=== PATIENT | male | born 1970 | race Caucasian/White ===

== ENCOUNTER 2016-11-24 02:25 | Emergency (ER) | payer OTHER ==
[~2016-11-24] VITALS: Ht 177.8 cm; Wt 88.6 kg
[~2016-11-24 02:25] MED LIST: AMPHETAMINE SAL10 MG PO; ATARAX,VISTARIL50 MG PO; CELEXA20 MG PO; CYCLOBENZAPRINE10 MG PO; FENOFIBRATE145 M1 PO; LISINOPRIL20 MG PO; LOSARTAN POTASS50 MG PO; MORPHINE SULFAT30 M2 PO; MORPHINE SULFAT60 MG PO; OMEPRAZOLE40 M1 PO; OXYCODONE-APAP1 EACH PO; PANTOPRAZOLE SO40 MG PO; QUESTRAN POWDE378 GM PO; SEROQUEL100 MG PO; SEROQUEL300 MG PO; SPIRIVA RESPIMAT4 GM IH; TRAZODONE HCL50 MG PO; VENTOLIN HFA18 GM IH; ZOLPIDEM TARTRAT5 MG PO
[2016-11-24 02:37] VITALS: BP 124/73
[2016-11-24 03:26] LABS: HEMATOCRIT 42.5 % (38.0-50.0); MCH 30.2 PG (29.0-34.0); MCHC 33.6 G/DL (30.0-36.0); MCV 89.7 FL (86-99); MEAN PLAT.VOLUME 9.5 uM^3 (9.0-12.4); PLATELET COUNT 334 K/uL (156-360); RBC DIS.WIDTH-CV 11.6 % (11.8-14.6); RED BLOOD COUNT 4.74 M/uL (4.00-5.50); WHITE BLOOD COUNT 11.5 K/uL (4.1-10.2)
[2016-11-24 03:34] LABS: CHLORIDE 102 mEq/L (99-109); POTASSIUM 3.6 mEq/L (3.7-5.4); SODIUM 137 mEq/L (136-147)
[2016-11-24 03:35] LABS: GLUCOSE 119 mg/dL (70-99)
[2016-11-24 03:37] LABS: ANION GAP 15 MEQ/L (2-14)
[2016-11-24 03:39] LABS: GFR ESTIMATE (CALCULATED) > 59 mL/min/
[2016-11-24 03:40] LABS: UREA NITROGEN (BUN) 9 mg/dL (9-23)
== END 2016-11-24 03:30 | disposition left against medical advice (07) ==
LOC: EME 02:25
DX: R11.2 Nausea with vomiting, unspecified (principal); Z53.21 Procedure and treatment not carried out due to patient leaving prior to being seen by health care provider
CPT/HCPCS: 71020; 80048; 85027; 93005; J2405

== ENCOUNTER 2017-03-10 14:08 | Observation (INO) | payer OTHER ==
[~2017-03-10] VITALS: Ht 177.8 cm; Wt 85.9 kg
[2017-03-10 15:04] LABS: HEMATOCRIT 50.6 % (38.0-50.0); MCH 30.4 PG (29.0-34.0); MCHC 34.4 G/DL (30.0-36.0); MCV 88.3 FL (86-99); PLATELET COUNT 338 K/uL (156-360); RBC DIS.WIDTH-CV 11.8 % (11.8-14.6); RED BLOOD COUNT 5.73 M/uL (4.00-5.50); WHITE BLOOD COUNT 12.8 K/uL (4.1-10.2)
[2017-03-10 15:14] LABS: CHLORIDE 106 mEq/L (99-109); POTASSIUM 5.3 mEq/L (3.7-5.4); SODIUM 138 mEq/L (136-147)
[2017-03-10 15:16] LABS: GLUCOSE 96 mg/dL (70-99)
[2017-03-10 15:18] LABS: ANION GAP 12 MEQ/L (2-14); TOTAL BILIRUBIN 0.5 mg/dL (0.0-1.0)
[2017-03-10 15:20] LABS: ALKALINE PHOSPHATASE 104 IU/L (3-129); GFR ESTIMATE (CALCULATED) > 59 mL/min/
[2017-03-10 15:21] LABS: UREA NITROGEN (BUN) 11 mg/dL (9-23)
[2017-03-10 15:22] LABS: DIRECT BILIRUBIN 0.2 mg/dL (0.0-0.3)
[2017-03-10 15:23] LABS: LIPASE 119 U/L (1.0-51.0)
[2017-03-10] MEDS ORDERED: LOTENSIN40 MG PO (19:19)
[2017-03-10] MEDS ORDERED: PROTONIX40 MG PO (19:19)
[2017-03-10] MEDS ORDERED: ADVAIR 250/501 DISK IH (19:20)
[2017-03-10] MEDS ORDERED: PROAIR HFA8.5 GM IH (19:20)
[2017-03-10] MEDS ORDERED: NORVASC5 MG PO (19:20)
[2017-03-10] MEDS ORDERED: CLINORIL200 MG PO (19:20)
[2017-03-10] MEDS ORDERED: OXYCODONE HCL10 MG PO (19:21)
[2017-03-10] MEDS ORDERED: OXYMORPHONE HCL20 MG PO (19:21)
[2017-03-10] MEDS ORDERED: RANITIDINE HCL300 MG PO (19:21)
[2017-03-10 20:27] LABS: MAGNESIUM 2.2 mg/dL (1.3-2.7)
[2017-03-10 20:31] LABS: SERUM ETHYL ALCOHOL < 10 mg/dL
[2017-03-10 22:54] LABS: HEMATOCRIT 46.4 % (38.0-50.0); MCV 88.9 FL (86-99)
[2017-03-10 23:35] VITALS: BP 125/71
[2017-03-11 04:16] VITALS: BP 103/68
[2017-03-11 05:15] LABS: BASOPHIL COUNT 0.1 K/uL (0-0.1); EOSINOPHIL (%) 2.3 % (0-5); EOSINOPHIL COUNT 0.2 K/uL (0-0.3); HEMATOCRIT 42.2 % (38.0-50.0); IMMATURE GRANULOCYTE (%) 0.5 % (0.0-0.7); INSTRUMENT ABS NEUTROPHIL CT 4.2 K/uL; LYMPHOCYTE COUNT 3.7 K/uL (1.0-2.8); MCHC 34.4 G/DL (30.0-36.0); MCV 90.4 FL (86-99); MEAN PLAT.VOLUME 9.5 uM^3 (9.0-12.4); MONOCYTE (%) 7.7 % (3-12); MONOCYTE COUNT 0.7 K/uL (0-0.8); NEUTROPHIL (%) 46.8 % (45-76); NEUTROPHIL COUNT 4.2 K/uL (1.8-6.4); PLATELET COUNT 240 K/uL (156-360); RBC DIS.WIDTH-CV 12.1 % (11.8-14.6); RBC DIS.WIDTH-SD 39.8 % (39-53); RED BLOOD COUNT 4.67 M/uL (4.00-5.50); WHITE BLOOD COUNT 8.9 K/uL (4.1-10.2)
[2017-03-11 07:14] LABS: ALKALINE PHOSPHATASE 66 IU/L (3-129); ANION GAP 7 MEQ/L (2-14); CHLORIDE 109 MEQ/L (99-109); GFR ESTIMATE (CALCULATED) > 59 mL/min/; GLUCOSE 87 mg/dL (70-99); POTASSIUM 4.3 MEQ/L (3.7-5.4); SAMPLE HEMOLYSIS CHECK 0; SAMPLE ICTERIC CHECK 0; SAMPLE LIPEMIA CHECK 0; SODIUM 138 MEQ/L (136-147); TOTAL BILIRUBIN 0.7 MG/DL (0.0-1.0); UREA NITROGEN (BUN) 10 mg/dL (9-23)
[2017-03-11 07:46] VITALS: BP 120/76
[2017-03-11 11:27] VITALS: BP 126/77
[2017-03-11] MEDS ORDERED: ANUCORT-HC25 MG PR (15:24)
[2017-03-11] MEDS ORDERED: NICOTINE PATCH1 EAC2 TD (15:24)
[2017-03-11 16:30] VITALS: BP 125/72
== END 2017-03-11 18:00 | disposition home or self-care (01) ==
LOC: EME 14:08 → EDOF 19:36 → 5WEST 19:36 → EDOF 19:36 → ENRESERV 19:38 → 5WEST 23:20
PROVIDERS: Hospitalist
DX: K92.1 Melena (principal); K92.0 Hematemesis; R19.7 Diarrhea, unspecified; F10.21 Alcohol dependence, in remission; J44.9 Chronic obstructive pulmonary disease, unspecified; I10 Essential (primary) hypertension; K21.9 Gastro-esophageal reflux disease without esophagitis; E78.5 Hyperlipidemia, unspecified; Z87.19 Personal history of other diseases of the digestive system; K76.0 Fatty (change of) liver, not elsewhere classified; F31.9 Bipolar disorder, unspecified; G89.29 Other chronic pain; M54.9 Dorsalgia, unspecified; Z79.891 Long term (current) use of opiate analgesic; F17.200 Nicotine dependence, unspecified, uncomplicated; Z82.0 Family history of epilepsy and other diseases of the nervous system; Z80.1 Family history of malignant neoplasm of trachea, bronchus and lung; Z80.8 Family history of malignant neoplasm of other organs or systems
CPT/HCPCS: 74177; 80048; 80053; 80076; 83690; 83735; 85014; 85018; 85025; 85027; 86900; 86901; 87493; 94640; 94640 76; 99202; 99281; 99285; C9113; G0378; G0480; J2270; J2405; J3411; J7030

== ENCOUNTER → 2018-02-05 | Outpatient (CLI) | payer OTHER ==
[~2018-02-05] MED LIST changes: +ADVAIR 250/501 DISK IH; +ANUCORT-HC25 MG PR; +CLINORIL200 MG PO; +LOTENSIN40 MG PO; +NICOTINE PATCH1 EAC2 TD; +NORVASC5 MG PO; +OXYCODONE HCL10 MG PO; +OXYMORPHONE HCL20 MG PO; +PROAIR HFA8.5 GM IH; +PROTONIX40 MG PO; +RANITIDINE HCL300 MG PO
== END | disposition home or self-care (01) ==
LOC: RAD 13:48
PROC: 3E0R3KZ Introduction of Other Diagnostic Substance into Spinal Canal, Percutaneous Approach (ICD-10-PCS; principal; 2018-02-05)
DX: M48.061 Spinal stenosis, lumbar region without neurogenic claudication (principal); M51.16 Intervertebral disc disorders with radiculopathy, lumbar region; F17.200 Nicotine dependence, unspecified, uncomplicated; Z98.1 Arthrodesis status; Z98.890 Other specified postprocedural states
CPT/HCPCS: 62304; 72132; 77003